=== PATIENT | male | born 1970 | race African-American/Black ===

== ENCOUNTER 2018-08-22 10:14 | Observation (INO) | payer BC ==
[2018-08-22 10:20] VITALS: BMI 19.5
[2018-08-22] MEDS ORDERED: SODIUM CHLORIDE 1,000 ML IV SCH (10:30)
--- NOTE | 2018-08-22 10:41 | PDOC ---
History of Present Illness - General Chief Complaint: CVA/TIA Stated Complaint: LT ARM NUMBNESS Time Seen by Provider: 08/22/18 10:25 History Source: Patient Exam Limitations: No Limitations - History of Present Illness Initial Comments: 08/22/18 10:31 This is a 47 YOM with unremarkable PMH who p/w acute onset LUE numbness and weakness while on the train this morning at 9:45 am. He initially thought it was caused by his position sitting on the train. He repositioned and tried to give the arm time to recover, but it was still present when he arrived to work. At that time, he became lightheaded and a bit nauseated, and the numbness/ weakness extended to his left thigh as well. He denies any LOC, recent falls/ injuries, tingling, weakness, slurred speech, confusion, vision changes, balance difficulties, difficulty walking, difficulty swallowing, or other symptoms. He had been feeling well prior to the onset of symptoms this morning. His symptoms persist at this time. He has not taken any medications for the symptoms and has never had these symptoms before. Past History - Past Medical History Allergies/Adverse Reactions: Allergies Allergy/AdvReac Type Severity Reaction Status Date / Time No Known Allergies Allergy Verified 08/22/18 10:17 Home Medications: Ambulatory Orders NK [No Known Home Medication] 08/22/18 COPD: No - Immunization History Immunization Up to Date: Yes - Suicide/Smoking/Psychosocial Hx Smoking History: Never smoked Hx Alcohol Use: No Drug/Substance Use Hx: No *Physical Exam - Vital Signs Last Vital Signs Temp Pulse Resp BP Pulse Ox 98.7 F 85 18 132/85 98 08/22/18 10:17 08/22/18 10:17 08/22/18 10:17 08/22/18 10:17 08/22/18 10:17 NIH Stroke Scale - Last Known Well Date/Time & Onset Date Last Known Well: 08/22/18 Time Last Known Well: 09:45 - Initial Evaluation Level of consciousness: Alert Ask patient the month and their age: Answers both correctly Ask patient to open & close eyes; make fist and let go: Obeys both correctly Best gaze (horizontal eye movement): Normal Visual field testing: No visual field loss Facial paresis (Show teeth/raise eyebrows/close eyes tight): Normal symmetrical movement Motor Function: Left Arm: Drift Motor Function: Right Arm: Normal (extends arm 90 (or 45) degrees for 10 seconds without drift Motor Function: Left Leg: Normal (extends leg 30 degrees for 5 seconds without drift) Motor Function: Right Leg: Normal (extends leg 30 degrees for 5 seconds without drift) Limb Ataxia: No ataxia Sensory(Use pinprick test arms,legs,trunk,face/side to side): Normal Best language (Describe picture, name items, read sentences): No Aphasia Dysarthria (read several words): Normal articulation Extinction and Inattention: No abnormality - Total Score NIH Stroke Scale Score: 1 tPA Exclusion Checklist 0-3hr - Time Elapsed Date last known well: 08/22/18 Time last known well: 09:45 Elaspsed time: Day(s) and 2 Hour(s) and 49 Minutes - Thrombolytic Therapy Candidate Is the patient eligible for Thrombolytic Therapy?: No - Exclusion Criteria 0-3hr SBP greater than 185 or DBP greater than 110mmHg despite tx: No Recent IC/spinal surgery,head trauma or stroke w/in last 3mo: No Hx of previous IC hemorrhage, IC neoplasm, AVM or aneurysm: No Active internal bleeding: No Blding diathesis(low plt ct, inc PTT,INR>1.7 or use of NOAC): No Symptoms suggest subarachnoid hemorrhage: No CT demonstrates multilobar infarct(>1/3 cerebral hemiphere): No Arterial puncture at noncompressible site in previous 7 days: No Blood glucose concentration less than 50mg/dL (2.7mmol/L): No - Relative Exclusion Criteria 0-3h Life expectancy <1yr/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 Rodriguez has seen the patient in the ED. States weakness has completely resolved, NIHSS 0 at this time. The patient will be admitted for TIA and further neuro w/u. Discharge Disposition - Diagnosis TIA (transient ischemic attack) - Discharge Dispostion Condition at time of disposition: Guarded Decision to Admit order: Yes - Referrals - Patient Instructions - Post Discharge Activity
[2018-08-22 10:45] LABS: HEMATOCRIT 41.7 % (35.4-49); HEMOGLOBIN 13.3 GM/dL (11.7-16.9); LYMPH % 22.9 % (8-40); MCH 27.4 pg (25.7-33.7); MCHC 31.9 g/dl (32.0-35.9); MEAN CELL VOLUME 85.9 fl (80-96); MEAN PLT VOLUME 7.1 fl (7.5-11.1); MONO % 5.8 % (3.8-10.2); NEUT % 69.3 % (42.8-82.8); PLATELET COUNT 232 K/MM3 (134-434); RBC 4.85 M/mm3 (4.00-5.60); RDW 13.3 % (11.9-15.9); WHITE BLOOD COUNT 3.4 K/mm3 (4.0-10.0)
[2018-08-22] MEDS: SODIUM CHLORIDE 1,000 ML IV SCH ×2 (11:04→16:59)
--- NOTE | 2018-08-22 11:08 | PDOC ---
NIH Stroke Scale - Last Known Well Date/Time & Onset Date Last Known Well: 08/22/18 Time Last Known Well: 08:40 - Initial Evaluation Level of consciousness: Alert Ask patient the month and their age: Answers both correctly Ask patient to open & close eyes; make fist and let go: Obeys both correctly Best gaze (horizontal eye movement): Normal Visual field testing: No visual field loss Facial paresis (Show teeth/raise eyebrows/close eyes tight): Normal symmetrical movement Motor Function: Left Arm: Normal Motor Function: Right Arm: Normal (extends arm 90 (or 45) degrees for 10 seconds without drift Motor Function: Left Leg: Normal (extends leg 30 degrees for 5 seconds without drift) Motor Function: Right Leg: Normal (extends leg 30 degrees for 5 seconds without drift) Limb Ataxia: No ataxia Sensory(Use pinprick test arms,legs,trunk,face/side to side): Normal Best language (Describe picture, name items, read sentences): No Aphasia Dysarthria (read several words): Normal articulation Extinction and Inattention: No abnormality - Total Score NIH Stroke Scale Score: 0
--- NOTE | 2018-08-22 11:09 | CON.NEURO ---
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 I was in the emergency room with the stroke code was called which was 10:35 AM. According to the patient he lives in [place] he was taking the train to [place] where his office is usually the patient takes a cab to [facility]. According to the patient when he got off the train he had a sudden onset of abnormal sensation in the left arm and tingling no seizure-like activity. Patient denies any prior similar symptoms. Patient was able to take a Walk to the Walk to his office. Patient called his insurance/medical insurance company nurse with advised patient to go to the emergency room patient did not call 911 patient to correct And return to [facility]. Stroke protocol was initiated. Patient denies any recent travel. I so the patient again in the emergency room his NIH stroke scale was 0. According to the patient he feels better but the left leg does not feel 100%. CAT scan of the head in the emergency room showed no evidence of acute bleed. Patient denies any headache no blurry vision or double vision no chest pain. EKG in the emergency room was sinus rhythm. Blood work was withdrawn. The decision was made among the stroke team not to give TPA. I explained to the patient that even if he doesn't feel better his NIH stroke scale is 0. The risk outweighs the benefit at this point. Patient is not on aspirin he is not hypertensive. Patient was hemodynamically stable in the emergency room. - History Source History Provided By: Patient - Alcohol/Substance Use Hx Alcohol Use: No - Smoking History Smoking history: Never smoked Home Medications - Allergies Allergies/Adverse Reactions: Allergies Allergy/AdvReac Type Severity Reaction Status Date / Time No Known Allergies Allergy Verified 08/22/18 10:17 Family Disease History - Family Disease History Family History: Denies Review of Systems - Review of Systems Constitutional: reports: No Symptoms Eyes: reports: No Symptoms Neurological: reports: Incoordination Physical Exam-Neuro Vital Signs: Vital Signs Temperature 98.7 F 08/22/18 10:17 Pulse Rate 85 08/22/18 10:17 Respiratory Rate 18 10/11/18 10:17 Blood Pressure 132/85 08/22/18 10:17 O2 Sat by Pulse Oximetry (%) 98 08/22/18 10:17 Constitutional: Yes: Well Nourished Neck: Yes: WNL Labs: CBC, BMP 08/22/18 10:38 - Neuro Exam Level Of Consciousness: Yes: Oriented to Person, Oriented to Place, Oriented to Time Eyes: Yes: PERRLA Speech: WNL Dominant Hand: Right Cranial Nerves II-XII Intact: Yes Gag: Present DTR's: 1+ Left Bicep, 1+ Right Bicep, 1+ Left Tricep, 1+ Right Tricep Response to light touch: Normal Response to pain prick: Normal Response to temperature: Normal Response to vibration: Normal Motor Strength: 4/5: Left Arm, Right Arm, Left Leg, Right Leg Gait: Deferred Imaging - Results Cat Scan: Image Reviewed Problem List - Problems (1) TIA (transient ischemic attack) Assessment/Plan: questionable right lacunar stroke versus TIA in the distribution of the M2 of the middle cerebral artery. Patient NIH stroke scale is down to 0. Risk of having a stroke is 8% in the first 3 months. Neurological differential diagnoses #1 transient ischemic attack. #2 rule out cardiovascular risk for stroke. Plan 1. Admit to telemetry. 2. Physical therapy. 3. SCD. 4. Baby aspirin. 5. Statin. 6. A.m. lipid. 8. MRI of the brain with no contrast. 9. Echocardiogram and carotid Doppler. 10. Dysphagia protocol. 11. DVT prophylaxis. 12. Urine toxicology screen. Thank you very much for allowing me to be part of this patient neurological care. Code(s): G45.9 - TRANSIENT CEREBRAL ISCHEMIC ATTACK, UNSPECIFIED
[2018-08-22 11:11] LABS: INR 1.01 (0.83-1.09); PROTHROMBIN TIME (PATIENT) 11.9 SEC (9.7-13.0)
[2018-08-22 11:21] LABS: ALBUMIN 4.4 g/dl (3.4-5.0); ALK PHOS 59 U/L (45-117); ANION GAP 6 MMOL/L (8-16); BILIRUBIN,TOTAL 0.8 mg/dL (0.2-1); BLOOD UREA NITROGEN 11 mg/dL (7-18); CALCIUM 9.8 mg/dL (8.5-10.1); CHLORIDE 106 mmol/L (98-107); CHOLESTEROL 139 mg/dL (50-200); CO2 31 mmol/L (21-32); GLUCOSE,RANDOM 92 mg/dL (74-106); HDL CHOLESTEROL 64 mg/dL (40-60); POTASSIUM 4.2 mmol/L (3.5-5.1); SGOT/AST 11 U/L (15-37); SGPT/ALT 15 U/L (13-61); SODIUM 143 mmol/L (136-145); TOT PROT 7.4 g/dl (6.4-8.2); TRIGLYCERIDES 63 mg/dL (0-150)
--- NOTE | 2018-08-22 11:25 | PDOC ---
History of Present Illness - General Chief Complaint: CVA/TIA Stated Complaint: LT ARM NUMBNESS Time Seen by Provider: 08/22/18 10:25 Past History - Past Medical History Allergies/Adverse Reactions: Allergies Allergy/AdvReac Type Severity Reaction Status Date / Time No Known Allergies Allergy Verified 08/22/18 10:17 COPD: No - Immunization History Immunization Up to Date: Yes - Suicide/Smoking/Psychosocial Hx Smoking History: Never smoked Hx Alcohol Use: No Drug/Substance Use Hx: No *Physical Exam - Vital Signs Last Vital Signs Temp Pulse Resp BP Pulse Ox 98.7 F 85 18 132/85 98 08/22/18 10:17 08/22/18 10:17 08/22/18 10:17 08/22/18 10:17 08/22/18 10:17 Moderate Sedation - Pre-Procedure Assessment Chest Tube Vital Signs: Vital Signs Temp Pulse Resp BP Pulse Ox 98.7 F 85 18 132/85 98 08/22/18 10:17 08/22/18 10:17 08/22/18 10:17 08/22/18 10:17 08/22/18 10:17 ED Treatment Course - LABORATORY CBC & Chemistry Diagram: 08/22/18 10:38 08/22/18 10:25 - ADDITIONAL ORDERS Additional order review: Laboratory Results 08/22/18 10:25 PT with INR 11.90 INR 1.01 08/22/18 10:38 RBC 4.85 MCV 85.9 MCHC 31.9 L RDW 13.3 MPV 7.1 L Neutrophils % 69.3 Lymphocytes % 22.9 Monocytes % 5.8 Eosinophils % 1.0 Basophils % 1.0 *DC/Admit/Observation/Transfer Diagnosis at time of Disposition: TIA (transient ischemic attack) - Discharge Dispostion Condition at time of disposition: Guarded - Referrals - Patient Instructions - Post Discharge Activity
--- NOTE | 2018-08-22 13:01 | HP ---
CHIEF COMPLAINT: Left upper extremity weakness PCP: HISTORY OF PRESENT ILLNESS: 47yo M with no significant history who presents today after experiencing weakness and parasthesias in his L upper extremity. He noticed this while on the train (about 8:40 am) and reports the feeling being like he sat on his arm for a while. 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 He called an RN phone line provided by his insurance who prompted him to come to the ER. During his ER stay the weakness and numbness persisted and christa lao was called. No TPA was administered and Head CT was unremarkable. Pt's symptoms quickly resolved at this point. Currently pt feels back at baseline. He can lift his phone once more with his L arm and he reports "feeling fine." Pt denies any fever/chills, shortness of breath, palpitations, chest pain/discomfort, blurry vision, n/v/d/c, back pain, and neck pain. Pt denies ever having this weakness/parasthesia before. He denies any history of migraines. 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 Lives with Family History: No history of cerebral disease in family Mother - DM, HTN () Allergies No Known Allergies Allergy (Verified 08/22/18 10:17) HOME MEDICATIONS: Home Medications Medication Instructions Recorded NK [No Known Home Medication] 08/22/18 REVIEW OF SYSTEMS CONSTITUTIONAL: Present: Lightheadedness Absent: fever, chills, diaphoresis, malaise, loss of appetite, weight change HEENT: Absent: rhinorrhea, nasal congestion, throat pain, throat swelling, difficulty swallowing, mouth swelling, ear pain, eye pain, visual changes CARDIOVASCULAR: Absent: chest pain, syncope, palpitations, irregular heart rate, peripheral edema RESPIRATORY: Absent: cough, shortness of breath, dyspnea with exertion, orthopnea, wheezing GASTROINTESTINAL: Absent: abdominal pain, abdominal distension, nausea, vomiting, diarrhea, constipation GENITOURINARY: Absent: dysuria, frequency, urgency, hesitancy MUSCULOSKELETAL: Absent: back pain, neck pain SKIN: Absent: rash, itching, pallor NEUROLOGIC: Present: L upper extremity weakness and prasethesia Absent: headache, dizziness, unsteady gait, seizure, mental status changes, bladder or bowel incontinence PHYSICAL EXAMINATION Vital Signs - 24 hr 08/22/18 10:17 Temperature 98.7 F Pulse Rate 85 Respiratory 18 Rate Blood Pressure 132/85 O2 Sat by Pulse 98 Oximetry (%) GENERAL: NAD, Awake, alert, and fully oriented HEENT: EOMI, DESHAWN, sclera anicterica, MMM, wearing glasses NECK: No JVD, no carotid bruits LUNGS: CTA bilaterally. No wheezes, and no crackles. No accessory muscle use. HEART: RRR, normal S1 and S2 without murmur ABDOMEN: Soft, NT/ND, normoactive bowel sounds, no guarding EXTREMITIES: 2+ distal pulses throughout, warm, well-perfused. No clubbing. No peripheral edema. No calf tenderness NEUROLOGICAL: Cranial nerves II-XII intact. Facial sensation intact b/l across all trigeminal marina, symmetrical smile and eyebrow raise No tongue deviation, no uvula deviation Strength 5/5 in all UExt regions including shoulder shrug. Sensation intact b/l in UExt. Strength 5/5 in all LExt regions. Sensation intact b/l in LExt. Plantar and dorsal flexion 5/5 Babinski downgoing Bicep reflex 2/4 b/l, Patellar reflex 2/4 b/l Normal speech. Normal gait. PSYCHIATRIC: Cooperative. Good eye contact. Appropriate mood and affect. SKIN: Warm, dry, no rashes or lesions noted Laboratory Results - last 24 hr 08/22/18 08/22/18 08/22/18 10:25 10:25 10:38 WBC 3.4 L RBC 4.85 Hgb 13.3 Hct 41.7 MCV 85.9 MCH 27.4 MCHC 31.9 L RDW 13.3 Plt Count 232 MPV 7.1 L Absolute Neuts (auto) 2.4 Neutrophils % 69.3 Lymphocytes % 22.9 Monocytes % 5.8 Eosinophils % 1.0 Basophils % 1.0 Nucleated RBC % 0 PT with INR 11.90 INR 1.01 Sodium 143 Potassium 4.2 Chloride 106 Carbon Dioxide 31 Anion Gap 6 L BUN 11 Creatinine 1.0 Creat Clearance w eGFR > 60 Random Glucose 92 Calcium 9.8 Total Bilirubin 0.8 AST 11 L ALT 15 Alkaline Phosphatase 59 Creatine Kinase 71 Troponin I < 0.02 C-Reactive Protein < 0.3 Total Protein 7.4 Albumin 4.4 Triglycerides 63 Cholesterol 139 Total LDL Cholesterol 71 HDL Cholesterol 64 H Blood Type Antibody Screen 08/22/18 10:38 WBC RBC Hgb Hct MCV MCH MCHC RDW Plt Count MPV Absolute Neuts (auto) Neutrophils % Lymphocytes % Monocytes % Eosinophils % Basophils % Nucleated RBC % PT with INR INR Sodium Potassium Chloride Carbon Dioxide Anion Gap BUN Creatinine Creat Clearance w eGFR Random Glucose Calcium Total Bilirubin AST ALT Alkaline Phosphatase Creatine Kinase Troponin I C-Reactive Protein Total Protein Albumin Triglycerides Cholesterol Total LDL Cholesterol HDL Cholesterol Blood Type A POSITIVE Antibody Screen Negative EKG - NSR@74bpm, Normal axis, normal R-wave progression, No ST abnormalities, QTc 421ms Head CT - without any acute pathology or territorial ischemia ASSESSMENT/PLAN: 47yo M with no sig. hx who presented with acute LUE weakness and numbess which resolved during his ER course. 1) TIA r/o CVA --Dr. Rodriguez already on board --Head CT negative --NIHSS currently of 0 -- 8% risk of CVA in next few months --MRI ordered --Lipid panel performed with nonsignificant findings --ASA 81mg qDaily --Carotid US w/o significant stenosis --Echo pending --Observe on cardiac monitoring for 24hrs from event FEN: Fluids: Finish 1L NS and then can continue without fluids Electrolytes: No abnormalities today Nutrition: Regular diet PPX: DVT - Early ambulation GI - Not indicated currently Dispo: TIA/Stroke telemetry for observation 24hrs Case discussed with Dr. Candace Barnes, DO - IM PGY-2 Visit type - Emergency Visit Emergency Visit: Yes ED Registration Date: 08/22/18 Care time: The patient presented to the Emergency Department on the above date and was hospitalized for further evaluation of their emergent condition. - New Patient This patient is new to me today: Yes Date on this admission: 08/22/18 - Critical Care Critical Care patient: No
--- NOTE | 2018-08-22 13:39 | PDOC ---
Attending Attestation - Resident Resident Name: LittlePeggy - ED Attending Attestation I have performed the following: I have examined & evaluated the patient, The case was reviewed & discussed with the resident, I agree w/resident's findings & plan, Exceptions are as noted - HPI HPI: 08/22/18 18:02 Mr Gan is a 47 yo M who presents to the ER p/w acute onset LUE numbness and weakness while on the train this morning at 9:45 am. (+) lightheaded (+) nausea (+) numbness/weakness extended to his left thigh as well. No slurred speech, confusion, vision changes, balance difficulties, difficulty walking, difficulty swallowing, or other symptoms. - Physicial Exam PE: 08/22/18 18:09 GENERAL: The patient is in no acute distress. EYES: PERRLA, EOMI, sclera anicteric, conjunctiva clear. ENT: Ears normal, nares patent, oropharynx clear without exudates. Moist mucous membranes. NECK: Normal range of motion, supple LUNGS: Breath sounds equal, clear to auscultation bilaterally. No wheezes, and no crackles. HEART:Regular rate and rhythm, normal S1 and S2 without murmur, rub or gallop. ABDOMEN: Soft, nontender, normoactive bowel sounds. No guarding, no rebound. EXTREMITIES: Normal range of motion NEUROLOGICAL: Cranial nerves II through XII grossly intact. Normal speech. No focal neurological deficits. Please see NIHSS SKIN: Warm, Dry, normal turgor, no rashes or lesions noted. - Medical Decision Making 08/22/18 18:12 CODE MOORE called Labs WNL EKG- HR 74, axis nml, intervals nml, no st elevations or depressions CT negative MRI ordered Will be admitted for further work up
[2018-08-22] MEDS ORDERED: ASPIRIN 81 MG CHEWABLE TABLETS ONE (13:48)
[2018-08-22] MEDS: ASPIRIN 81 MG CHEWABLE TABLETS PO SCH (13:48)
--- NOTE | 2018-08-22 14:59 | ECHO ---
Name: INESSA DUMONT Exam:Adult Echocardiogram Study Date: 08/22/2018 01:41 PM Age: 47 yrs Reason For Study: CVA Height: 71 in Weight: 140 lb BSA: 1.8 m2 MMode/2D Measurements & Calculations IVSd: 1.0 cm Ao root diam: 2.3 cm LVIDd: 3.4 cm LVIDs: 1.8 cm LVPWd: 1.6 cm EDV(Teich): 48.2 ml LVOT diam: 2.5 cm ESV(Teich): 10.4 ml Doppler Measurements & Calculations Med Peak E' Remy: 4.8 cm/sec Lat Peak E' Remy: 12.8 cm/sec Procedure A complete two-dimensional transthoracic echocardiogram was performed (2D, M-mode, Doppler and color flow Doppler). Left Ventricle The left ventricular size, thickness and function are normal. The left ventricular ejection fraction is normal. Ejection Fraction = 60-65%. The left ventricular wall motion is normal. Right Ventricle The right ventricle is normal in size and function. Atria Normal left and right atrial size and function. Mitral Valve There is no mitral regurgitation noted. Tricuspid Valve There is trace tricuspid regurgitation. There was insufficient TR detected to calculate RV systolic p ressure. Aortic Valve No hemodynamically significant valvular aortic stenosis. No aortic regurgitation is present. Pulmonic Valve There is no pulmonic valvular regurgitation. Great Vessels The aortic root is normal size. Pericardium/Pleura There is no pericardial effusion. Interpretation Summary The left ventricular size, thickness and function are normal. The right ventricle is normal in size and function. There is trace tricuspid regurgitation. MD Harshad Courtney 08/22/2018 02:59 PM
--- NOTE | 2018-08-22 15:01 | EKG ---
Test Reason : Blood Pressure : / mmHG Vent. Rate : 074 BPM Atrial Rate : 074 BPM P-R Int : 134 ms QRS Dur : 096 ms QT Int : 380 ms P-R-T Axes : 080 051 073 degrees QTc Int : 421 ms NORMAL SINUS RHYTHM NORMAL ECG NO PREVIOUS ECGS AVAILABLE Confirmed by CATE MEREDITH MD ([id number]) on 08/22/2018 3:00:46 PM Referred By: Confirmed By:CATE MEREDITH MD
--- NOTE | 2018-08-22 15:11 | PN ---
Teaching Attending Note Name of Resident: Carlos Barnes ATTENDING PHYSICIAN STATEMENT I saw and evaluated the patient. I reviewed the resident's note and discussed the case with the resident. I agree with the resident's findings and plan as documented with exceptions below SUBJECTIVE: 47 yom with no significant pmhx admitted with sudden onset of LUE weakness/ numbness associated with transient dizziness, gradually resolved in the ED. Patient currently asymptomatic, denies similar prior history. Non smoker, no famhx of CVA. 12 point ROS done, neg currently. OBJECTIVE: Vital Signs Period Temp Pulse Resp BP Sys/Lomax Pulse Ox Last 24 Hr 98.0 F-98.7 F 78-85 17-18 132-139/85-89 98-99 Intake & Output 08/19/18 08/20/18 08/21/18 08/22/18 23:59 23:59 23:59 23:59 Weight 139 lb 15.896 oz GENERAL: Awake, alert, and fully oriented, in no acute distress. HEAD: Normal with no signs of trauma. EYES: Pupils equal, round and reactive to light, extraocular movements intact, sclera anicteric, conjunctiva clear. No lid lag. EARS, NOSE, THROAT: Ears normal, nares patent, oropharynx clear without exudates. Moist mucous membranes. NECK: Normal range of motion, supple without lymphadenopathy, JVD, or masses. LUNGS: Breath sounds equal, clear to auscultation bilaterally. No wheezes, and no crackles. No accessory muscle use. HEART: Regular rate and rhythm, normal S1 and S2 without murmur, rub or gallop. ABDOMEN: Soft, nontender, not distended, normoactive bowel sounds, no guarding, no rebound, no masses. MUSCULOSKELETAL: Normal range of motion at all joints. No bony deformities or tenderness. No CVA tenderness. UPPER EXTREMITIES: 2+ pulses, warm, well-perfused. No cyanosis. No clubbing. No peripheral edema. LOWER EXTREMITIES: 2+ pulses, warm, well-perfused. No calf tenderness. No peripheral edema. NEUROLOGICAL: Cranial nerves II-XII intact. Normal speech. AAOX3, facial symmetry, tongue midline, EOMI, no pronator drift, power 5/5, sensation intact and symmetric to light touch,EOMI, PERRL, toes downgoing PSYCHIATRIC: Cooperative. Good eye contact. Appropriate mood and affect. SKIN: Warm, dry, normal turgor, no rashes or lesions noted, normal capillary refill. Home Medications Medication Instructions Recorded NK [No Known Home Medication] 08/22/18 Active Medications Aspirin (Asa -) 81 mg PO DAILY [facility] Last Admin: 08/22/18 13:48 Dose: 81 mg Sodium Chloride (Normal Saline -) 1,000 mls @ 42 mls/hr IV ASDIR [facility] Last Admin: 08/22/18 11:04 Dose: 42 mls/hr Laboratory Results - last 24 hr 08/22/18 08/22/18 08/22/18 10:25 10:25 10:38 WBC 3.4 L RBC 4.85 Hgb 13.3 Hct 41.7 MCV 85.9 MCH 27.4 MCHC 31.9 L RDW 13.3 Plt Count 232 MPV 7.1 L Absolute Neuts (auto) 2.4 Neutrophils % 69.3 Lymphocytes % 22.9 Monocytes % 5.8 Eosinophils % 1.0 Basophils % 1.0 Nucleated RBC % 0 PT with INR 11.90 INR 1.01 Sodium 143 Potassium 4.2 Chloride 106 Carbon Dioxide 31 Anion Gap 6 L BUN 11 Creatinine 1.0 Creat Clearance w eGFR > 60 Random Glucose 92 Calcium 9.8 Total Bilirubin 0.8 AST 11 L ALT 15 Alkaline Phosphatase 59 Creatine Kinase 71 Troponin I < 0.02 C-Reactive Protein < 0.3 Total Protein 7.4 Albumin 4.4 Triglycerides 63 Cholesterol 139 Total LDL Cholesterol 71 HDL Cholesterol 64 H Blood Type Antibody Screen 08/22/18 10:38 WBC RBC Hgb Hct MCV MCH MCHC RDW Plt Count MPV Absolute Neuts (auto) Neutrophils % Lymphocytes % Monocytes % Eosinophils % Basophils % Nucleated RBC % PT with INR INR Sodium Potassium Chloride Carbon Dioxide Anion Gap BUN Creatinine Creat Clearance w eGFR Random Glucose Calcium Total Bilirubin AST ALT Alkaline Phosphatase Creatine Kinase Troponin I C-Reactive Protein Total Protein Albumin Triglycerides Cholesterol Total LDL Cholesterol HDL Cholesterol Blood Type A POSITIVE Antibody Screen Negative CT brain results reviewed EKG sinus rhythm,no acute ST-T changes 2d ECho trace TR Carotid Doppler - neg for hemodynamically significant stenosis ASSESSMENT AND PLAN: 47 yom with no significant PMHX admitted with LUE weakness/numbness and transient dizziness now resolved -LUE weakness/Numbness, r/o TIA/CVA PLan: Neurology input noted. CT brain/2d echo/carotid doppler noted FOllow up MRI brain Neuro checks q4h. lipid panel noted. Continue ASA. Permissive HTN as observed PT eval if new concerns, non focal exam currently DIspo d/c in 24 hours if work up unrevealing and no new concerns. Plan discussed with patient and at bedside in detail, all questions answered. Admit to obs stroke telemetry total admit time 55 min.
[2018-08-22 18:24] LABS: URINE APPEARANCE CLEAR; URINE BILIRUBIN NEGATIVE (<2.0 mg/dL); URINE COLOR STRAW; URINE GLUCOSE (UA) NEGATIVE (NEGATIVE); URINE KETONE NEGATIVE (NEGATIVE); URINE LEUK ESTERASE NEGATIVE (NEGATIVE); URINE NITRITE NEGATIVE (NEGATIVE); URINE PROTEIN NEGATIVE (NEGATIVE); URINE UROBILINOGEN NEGATIVE mg/dL (0.2-1.0)
[2018-08-23] MEDS: ASPIRIN 81 MG CHEWABLE TABLETS PO SCH (09:36)
--- NOTE | 2018-08-23 11:42 | PN ---
Teaching Attending Note Name of Resident: Garrett Vega ATTENDING PHYSICIAN STATEMENT I saw and evaluated the patient. I reviewed the resident's note and discussed the case with the resident. I agree with the resident's findings and plan as documented with exceptions below. SUBJECTIVE: Patient seen and examined. no complaints overnight. OBJECTIVE: Vital Signs Period Temp Pulse Resp BP Sys/Lomax Pulse Ox Last 24 Hr 97.6 F-98.7 F 64-78 17-20 109-150/57-89 99-100 Intake & Output 08/20/18 08/21/18 08/22/18 08/23/18 23:59 23:59 23:59 23:59 Intake Total 350 Balance 350 Weight 139 lb 15.896 oz general: sitting in bed in no acute distress neuro; AAOx3, non focal unchanged exam Active Medications Aspirin (Asa -) 81 mg PO DAILY [facility] Last Admin: 08/23/18 09:36 Dose: 81 mg Sodium Chloride (Normal Saline -) 1,000 mls @ 42 mls/hr IV ASDIR [facility] Last Admin: 08/22/18 16:59 Dose: 42 mls/hr Laboratory Results - last 24 hr 08/22/18 08/22/18 08/22/18 10:25 10:38 15:30 ESR Sodium 143 Potassium 4.2 Chloride 106 Carbon Dioxide 31 Anion Gap 6 L BUN 11 Creatinine 1.0 Creat Clearance w eGFR > 60 Random Glucose 92 Hemoglobin A1c % Calcium 9.8 Total Bilirubin 0.8 AST 11 L ALT 15 Alkaline Phosphatase 59 Creatine Kinase 71 Troponin I < 0.02 C-Reactive Protein < 0.3 Total Protein 7.4 Albumin 4.4 Triglycerides 63 Cholesterol 139 Total LDL Cholesterol 71 HDL Cholesterol 64 H Vitamin B12 434 TSH Urine Color Straw Urine Appearance Clear Urine pH 7.0 Ur Specific [place] 1.012 Urine Protein Negative Urine Glucose (UA) Negative Urine Ketones Negative Urine Blood Negative Urine Nitrite Negative Urine Bilirubin Negative Urine Urobilinogen Negative Ur Leukocyte Esterase Negative Blood Type A POSITIVE Antibody Screen Negative 08/22/18 08/23/18 08/23/18 16:30 05:30 05:30 ESR 2 Sodium Potassium Chloride Carbon Dioxide Anion Gap BUN Creatinine Creat Clearance w eGFR Random Glucose Hemoglobin A1c % Calcium Total Bilirubin AST ALT Alkaline Phosphatase Creatine Kinase Troponin I C-Reactive Protein Total Protein Albumin Triglycerides Cholesterol Total LDL Cholesterol HDL Cholesterol Vitamin B12 TSH 1.51 Urine Color Urine Appearance Urine pH Ur Specific [place] Urine Protein Urine Glucose (UA) Urine Ketones Urine Blood Urine Nitrite Urine Bilirubin Urine Urobilinogen Ur Leukocyte Esterase Blood Type A POSITIVE Antibody Screen 08/23/18 05:30 ESR Sodium Potassium Chloride Carbon Dioxide Anion Gap BUN Creatinine Creat Clearance w eGFR Random Glucose Hemoglobin A1c % 5.4 Calcium Total Bilirubin AST ALT Alkaline Phosphatase Creatine Kinase Troponin I C-Reactive Protein Total Protein Albumin Triglycerides Cholesterol Total LDL Cholesterol HDL Cholesterol Vitamin B12 TSH Urine Color Urine Appearance Urine pH Ur Specific [place] Urine Protein Urine Glucose (UA) Urine Ketones Urine Blood Urine Nitrite Urine Bilirubin Urine Urobilinogen Ur Leukocyte Esterase Blood Type Antibody Screen MRi brain/2D echo/Carotid duplex results reviewed ASSESSMENT AND PLAN: 47 yom with no significant PMHX admitted with LUE weakness/numbness and transient dizziness now resolved -LUE weakness/Numbness, r/o TIA/CVA PLan: No further events. W/u non concerning Telemetry with no events. SPEP/Homycystein/Vit D levels sent by neurology, pending. D/c with outpatient follow up. Discussed with patient for cardiology referral outpatient for possible holter plan discussed with patient in detail, all questions answered.
[2018-08-23 11:57] VITALS: BP 122/76; PULSE 70; TEMP 98
--- NOTE | 2018-08-23 17:48 | DS ---
Physical Exam: SUBJECTIVE: Patient seen and examined OBJECTIVE: Vital Signs Period Temp Pulse Resp BP Sys/Lomax Pulse Ox Last 24 Hr 98 F-98.7 F 64-70 20-20 109-130/57-77 99-99 PHYSICAL EXAM GENERAL: The patient is awake, alert, and fully oriented, in no acute distress. HEAD: Normal with no signs of trauma. EYES: PERRL, extraocular movements intact, sclera anicteric, conjunctiva clear. ENT: Ears normal, nares patent, oropharynx clear without exudates, moist mucous membranes. NECK: Trachea midline, full range of motion, supple. LUNGS: Breath sounds equal, clear to auscultation bilaterally, no wheezes, no crackles, no accessory muscle use. HEART: Regular rate and rhythm, S1, S2 without murmur, rub or gallop. ABDOMEN: Soft, nontender, nondistended, normoactive bowel sounds, no guarding, no rebound, no hepatosplenomegaly, no masses. EXTREMITIES: 2+ pulses, warm, well-perfused, no edema. NEUROLOGICAL: Cranial nerves II through XII grossly intact. Normal speech, gait not observed. PSYCH: Normal mood, normal affect. SKIN: Warm, dry, normal turgor, no rashes or lesions noted. LABS Laboratory Results - last 24 hr 08/22/18 08/23/18 08/23/18 15:30 05:30 05:30 ESR 2 Hemoglobin A1c % TSH 1.51 Urine Color Straw Urine Appearance Clear Urine pH 7.0 Ur Specific [place] 1.012 Urine Protein Negative Urine Glucose (UA) Negative Urine Ketones Negative Urine Blood Negative Urine Nitrite Negative Urine Bilirubin Negative Urine Urobilinogen Negative Ur Leukocyte Esterase Negative 08/23/18 05:30 ESR Hemoglobin A1c % 5.4 TSH Urine Color Urine Appearance Urine pH Ur Specific [place] Urine Protein Urine Glucose (UA) Urine Ketones Urine Blood Urine Nitrite Urine Bilirubin Urine Urobilinogen Ur Leukocyte Esterase HOSPITAL COURSE: Date of Admission:08/22/18 Date of Discharge: 08/23/18 HPI 47yo M with no significant history who presents today after experiencing weakness and parasthesias in his L upper extremity. He noticed this while on the train (about 8:40 am) and reports the feeling being like he sat on his arm for a while. 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 He called an RN phone line provided by his insurance who prompted him to come to the ER. During his ER stay the weakness and numbness persisted and christa tashia was called. No TPA was administered and Head CT was unremarkable. Pt's symptoms quickly resolved at this point. Currently pt feels back at baseline. He can lift his phone once more with his L arm and he reports "feeling fine." Pt denies any fever/chills, shortness of breath, palpitations, chest pain/discomfort, blurry vision, n/v/d/c, back pain, and neck pain. Pt denies ever having this weakness/parasthesia before. He denies any history of migraines. Hospital Course Pts symptoms rapidly resolved and did not return. As such, pt was not a candidate for TPA. He was started on ASA 81. Carotid Doppler, Brain MRI, Chest Xray, and CT Head were done which were all negative for any acute findings. Pt was deemed medically safe for discharge. He was instructed to follow up with his primary care physician who may wish to refer him to cardiology or Neuro as an outpatient follow up. Minutes to complete discharge: 35 Discharge Summary Reason For Visit: TIA Condition: Good - Instructions Diet, Activity, Other Instructions: You were observed in the hospital overnight due to numbness and weakness in your left arm and leg. A full workup was done to rule out an acute stroke. All of the imaging and lab tests were negative for any signs of a stroke including a Head CT, a Brain MRI, ultrasound of your arteries that supply your brain. At this time it seems you likely had a Transient Ischemic Attack which has completely resolved. At this time you are safe to be discharged. You should follow up with your primary care physician within 1-2 weeks. Your doctor may wish to refer you to a soldering machine operator to wear a monitor for a while to look for any abnormal heart rythms. Your blood tests "SPEP" , "homycysteine" and "vitamin D levels" were sent by neurologist, results of which are currently pending. You can have your doctor follow up in 1 week or follow up with neurologist Dr. Rodriguez for the same. You were started on a baby aspirin once per day. You should start taking 81 mg of aspirin once daily. It is over the counter. If your symptoms return or worsen or if you have severe headache, weakness, or numbness anywhere, or any new concerns, you should call your doctor or return to the emergency room immediately. Referrals: Desmond Rodriguez MD [Staff Physician] - 2 Weeks Disposition: HOME - Home Medications Comprehensive Discharge Medication List: Ambulatory Orders Aspirin [ASA -] 81 mg PO DAILY #30 tab.chew 08/23/18 This patient is new to me today: Yes Date on this admission: 08/23/18 Emergency Visit: Yes ED Registration Date: 08/22/18 Care time: The patient presented to the Emergency Department on the above date and was hospitalized for further evaluation of their emergent condition. Critical Care patient: No - Discharge Referral Referred to [facility] Med [facility].: No
== END 2018-08-23 15:18 | disposition home or self-care (01) ==
LOC: JER 10:14 → JERBED 12:13 → J4W 15:14
PROVIDERS: ADMIT Hospitalist; ATTEND Hospitalist
PROC: 3E0337Z Introduction of Electrolytic and Water Balance Substance into Peripheral Vein, Percutaneous Approach (ICD-10-PCS; principal; 2018-08-22)
DX: G45.9 Transient cerebral ischemic attack, unspecified (principal)
CPT/HCPCS: 36415; 70450-TC; 70551-TC; 71045-TC-FY; 80053; 81003; 82306; 82465; 82550; 82607; 83036; 83090; 83718; 83721; 84155; 84165; 84443; 84478; 84484; 85025; 85610; 85651; 86140; 86850; 86900; 86901; 93005; 93010; 93306-TC; 93880-TC; 97116-GP; 97161-GP; 99284-25; G0378; J7030